=== PATIENT | male | born 2000 | race Two or more races ===

== ENCOUNTER 2022-02-14 13:29 | Emergency (ER) | payer BC ==
[~2022-02-14] VITALS: Ht 188 cm; Wt 64.0 kg
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
[2022-02-14] MEDS ORDERED: NAPR-1192 PO (14:06)
[2022-02-14] MEDS ORDERED: GABA-532 PO (14:17)
[2022-02-14 14:19] VITALS: BP 104/45
--- NOTE | 2022-02-14 14:19 | NUR ---
Patient discharged to home in stable condition. Written and verbal after care instructions given. Patient verbalizes understanding of instruction.
== END 2022-02-14 14:20 | disposition home or self-care (01) ==
LOC: ER 13:41
DX: G89.18 Other acute postprocedural pain (principal); M25.561 Pain in right knee; F32.A Depression, unspecified; F41.9 Anxiety disorder, unspecified; F43.10 Post-traumatic stress disorder, unspecified; Z98.890 Other specified postprocedural states; Z79.899 Other long term (current) drug therapy